=== PATIENT | male | born 1985 | race Caucasian/White ===

== ENCOUNTER → 2022-05-29 12:40 | Outpatient (CLI) | payer OTHER, SELFPAY ==
[2022-05-29 13:22] LABS: Semen Sperm Prescence Post-Vas Absent (ABSENT)
== END ==
PROVIDERS: Referring Provider Specialist; Visit Provider Specialist
DX: Z98.52 Vasectomy status (principal)
CPT/HCPCS: 89321

== ENCOUNTER 2024-08-10 07:14 | Day surgery (SDC) | payer OTHER, SELFPAY ==
[2024-08-10 07:55] VITALS: BP 120/83; PULSE 80; RESP 16; TEMP 36.7; O2SAT 96
[2024-08-10] MEDS: SODIUM CHLORIDE 0.9% 1,000 ML 150 ML IV (08:01)
--- NOTE | 2024-08-10 09:07 | PM.HP.IH.1 ---
History of Present Illness History of Present Illness Date Patient Seen: 08/10/24 Time Patient Seen: 09:07 Chief complaint: SDC Narrative: 39-year-old white male with family history of colon cancer in his mother. No changes in bowel habits. No blood in his stool. No unexplained weight loss [facility] Medical History (Updated 08/10/24 @ 09:08 by Carlos Alberto Curtis MD) Colon cancer screening (08/10/24) Family history of colon cancer Encounter for sterilization Sterilization consult Surgical History Hx of circumcision Social History marital status: number of children: 4 Smoking Status: Former smoker Tobacco: How many years used: 15 alcohol intake: current caffeine: Yes Type(s) of exercise: regular exercise frequency: 3-4 times per week duration: > 90 minutes/day Meds Home Medications and Allergies Home Medications Medication Instructions Recorded Confirmed Type sodium,potassium,mag sulfates 17.5 See Rx Instructions PO .COMPLEX 04/15/24 Rx gram-3.13 gram-1.6 gram oral soln #354 mL (Suprep Bowel Prep Kit) Allergies Allergy/AdvReac Type Severity Reaction Status Date / Time No Known Drug Allergies Allergy Verified 08/10/24 07:54 Review of Systems Review of Systems ROS: Yes All systems reviewed with the patient and are negative except as otherwise documented Exam Vital Signs (past 8 hours): - 08/10/24 07:55 Temperature 98.1 F Pulse Rate 80 Respiratory Rate 16 Blood Pressure 120/83 Pulse Oximetry 96 Oxygen Delivery Method Room Air Oxygen Delivery Method Room Air Narrative Exam Narrative: Gen: NAD, sitting comfortably in bed, appears well HEENT: Sclera are anicteric, head is normocephalic and atraumatic, trachea is midline. CV: RRR, no JVD Resp: clear to auscultation bilaterally, equal chest wall movement bilaterally Abd: soft, nontender, normoactive bowel sounds Ext: no edema, full range of motion Neuro: Cranial nerves II-XII grossly intact, no focal deficits Skin: No erythema or ecchymosis Assessment & Plan Assessment and plan (1) Family history of colon cancer: Status: Acute (2) Colon cancer screening: Status: Acute Assessment & Plan narrative: Patient presents for colonoscopy Risks, benefits, alternatives to colonoscopy explained, including but not limited to bowel perforation or other serious complication requiring surgery at less than 1 in 5000 colonoscopies, abdominal pain, cramping or bleeding and less than 1% of colonoscopies, and the chances that we find a diagnosis that would require further intervention of about 2%. Patient agrees to proceed. Time-Based Coding :: [TOTAL MINUTES] spent with patient and on the chart (including review of chart, obtaining history, exam, reviewing outside data, placing orders, documenting exam and treatment plan, and counseling patient) on [DATE]. [employer] Research Scientist Document charge(s): No
--- NOTE | 2024-08-10 09:21 | SUR.OPER ---
[address] [facility]
--- NOTE | 2024-08-10 09:30 | PM.OP.COLON ---
Operative Date/Time/Diagnoses Date of procedure: 08/10/24 Time of procedure: 09:30 Pre-op diagnosis: High-risk colon screening Post-op diagnosis: same Procedure & Clinicians Study performed: Colonoscopy Same procedure as scheduled: Yes Indications: High-risk colon screening, colon cancer in mother Surgeon: Carlos Alberto Curtis Procedure Notes SCOAP/Timeout: Performed Procedure in detail: Time-out was performed. Mac was induced. Patient was placed in left lateral decubitus position. The perineum was inspected without any gross abnormality. Lubricated pediatric colonoscope was inserted and advanced to the cecum. The terminal ileum was intubated. The colonoscope was withdrawn slowly inspecting the circumference of the colon. Very small polyps may have been missed, prep quality was adequate. Retroflexed view of the rectum showed small, non prolapsed nonbleeding internal hemorrhoids. The scope was withdrawn the patient was taken to PACU in good condition. Scope withdrawal time: 10 Sedation minutes: 15 Specimen(s): none sent Complications: none Impression: Normal colon Post-procedure Recommendations: Colonoscopy in 10 years Follow up: as needed Disposition: PACU
[2024-08-10 09:32] VITALS: BP 97/69; PULSE 81; RESP 16; TEMP 36.6; O2SAT 94
[2024-08-10 09:36] VITALS: BP 100/70; PULSE 76; RESP 12; O2SAT 96
[2024-08-10 09:42] VITALS: BP 101/65; PULSE 78; RESP 11; O2SAT 95
[2024-08-10 09:47] VITALS: BP 114/82; PULSE 86; RESP 24; O2SAT 96
== END 2024-08-10 10:01 | disposition home or self-care (01) ==
PROVIDERS: Surgery; Referring Provider Surgery; Visit Provider Surgery
PROC: 0DJD8ZZ Inspection of Lower Intestinal Tract, Via Natural or Artificial Opening Endoscopic (ICD-10-PCS; CPT 45378; principal; 2024-08-10 08:45)
DX: Z12.11 Encounter for screening for malignant neoplasm of colon (principal); Z80.0 Family history of malignant neoplasm of digestive organs; K64.8 Other hemorrhoids; Z87.891 Personal history of nicotine dependence
CPT/HCPCS: G0105; J2405; J2704